=== PATIENT | male | born 1960 | race Hispanic/Latino ===

== ENCOUNTER 2022-07-30 10:42 | Emergency (ER) | payer MEDICARE ==
[~2022-07-30] VITALS: Ht 170.2 cm; Wt 154.2 kg
[2022-07-30] MEDS ORDERED: HYDROCODONE/APAP 10MG-325MG TAB PO ONE (11:30)
[2022-07-30] MEDS ORDERED: CEFTRIAXONE 1 GM VIAL IV ONE (11:30)
[2022-07-30] MEDS ORDERED: SODIUM CHLORIDE 0.9% 1000ML 1,000 ML IV SCH (11:30)
[2022-07-30 12:14] LABS: BASOPHILS % 0.4 % (0.0-1.0); EOSINOPHILS # (AUTO) 0.1 (0.0-0.4); EOSINOPHILS % 1.1 % (0.0-6.0); HEMATOCRIT 55.3 % (38.2-49.6); HEMOGLOBIN 18.5 g/dL (14.0-18.0); LYMPHOCYTES # (AUTO) 1.8 (1.0-3.2); LYMPHOCYTES % 24.7 % (18.0-39.1); MEAN CORPUSCULAR HEMOGLOBIN 29.4 pg (28-32); MEAN CORPUSCULAR HGB CONC 33.5 g/dL (31-35); MEAN CORPUSCULAR VOLUME 87.9 fL (81-99); MONOCYTES # (AUTO) 0.7 (0.2-0.8); MONOCYTES % 9.8 % (4.4-11.3); NEUTROPHILS # (AUTO) 4.6 (2.1-6.9); NEUTROPHILS % 63.7 % (38.7-80.0); PLATELET COUNT 176 x10e3/uL (140-360); RED BLOOD COUNT 6.29 x10e6/uL (4.3-5.7); RED CELL DISTRIBUTION WIDTH 17.3 % (11.7-14.4)
[2022-07-30] MEDS ORDERED: VANCOMYCIN 300 ML IV ONE (12:30)
[2022-07-30 12:48] LABS: ALBUMIN 3.6 g/dL (3.5-5.0); ALBUMIN/GLOBULIN RATIO 0.9 (0.8-2.0); ANION GAP 14.3 mmol/L (8-16); CALCIUM 9.2 mg/dL (8.4-10.2); CREATININE, SERUM 0.82 mg/dL (0.72-1.25); POTASSIUM 4.3 mmol/L (3.5-5.1)
[2022-07-30] MEDS ORDERED: IOPAMIDOL 370 MG/ML 100 ML INFUS..BTL INJ ONE (13:05)
[2022-07-30] MEDS ORDERED: AMOX TR-K CLV1 EAC2 PO (14:19)
[2022-07-30] MEDS ORDERED: DOXYCYCLINE MO100 M1 PO (14:19)
[2022-07-30] MEDS ORDERED: ACETAMINOPHEN-1 EAC4 PO (14:19)
[2022-07-30 16:42] VITALS: BP 149/79
== END 2022-07-30 16:45 | disposition home or self-care (01) ==
LOC: ER 10:50
DX: L89.159 Pressure ulcer of sacral region, unspecified stage (principal); L03.818 Cellulitis of other sites; E11.65 Type 2 diabetes mellitus with hyperglycemia; E78.5 Hyperlipidemia, unspecified
CPT/HCPCS: 36415; 72193; 80053; 83605; 85025; 86140; 87040; 99284; J0696; J7030; Q9967

== ENCOUNTER 2022-08-24 15:31 | Emergency (ER) | payer MEDICARE ==
[~2022-08-24] VITALS: Ht 170.2 cm; Wt 154.2 kg
[~2022-08-24 15:31] MED LIST: ACETAMINOPHEN-1 EAC4 PO; AMOX TR-K CLV1 EAC2 PO; DOXYCYCLINE MO100 M1 PO
[2022-08-24] MEDS ORDERED: KETOROLAC TROMETHAMINE 60 MG/2 ML VIAL ONE (15:55)
[2022-08-24] MEDS ORDERED: SODIUM CHLORIDE FLUSH 10 ML SYR IV PRN (16:15)
[2022-08-24 16:26] LABS: BASOPHILS % 0.2 % (0.0-1.0); EOSINOPHILS % 0.3 % (0.0-6.0); HEMATOCRIT 49.3 % (38.2-49.6); HEMOGLOBIN 16.4 g/dL (14.0-18.0); LYMPHOCYTES # (AUTO) 1.2 (1.0-3.2); LYMPHOCYTES % 12.3 % (18.0-39.1); MEAN CORPUSCULAR HEMOGLOBIN 29.7 pg (28-32); MEAN CORPUSCULAR HGB CONC 33.3 g/dL (31-35); MEAN CORPUSCULAR VOLUME 89.3 fL (81-99); MONOCYTES # (AUTO) 0.5 (0.2-0.8); MONOCYTES % 5.7 % (4.4-11.3); NEUTROPHILS # (AUTO) 7.7 (2.1-6.9); NEUTROPHILS % 80.8 % (38.7-80.0); PLATELET COUNT 177 x10e3/uL (140-360); RED BLOOD COUNT 5.52 x10e6/uL (4.3-5.7); RED CELL DISTRIBUTION WIDTH 15.1 % (11.7-14.4)
[2022-08-24 16:38] LABS: ALBUMIN/GLOBULIN RATIO 0.6 (0.8-2.0); ANION GAP 13.8 mmol/L (8-16); CALCIUM 9.4 mg/dL (8.4-10.2); CREATININE, SERUM 0.89 mg/dL (0.72-1.25); POTASSIUM 4.8 mmol/L (3.5-5.1)
[2022-08-24] MEDS ORDERED: AZITHROMYCIN250 MG PO (19:48)
[2022-08-25] MEDS ORDERED: IOPAMIDOL 370 MG/ML 100 ML INFUS..BTL INJ ONE (04:05)
== END 2022-08-24 20:23 | disposition home or self-care (01) ==
LOC: ER 15:41
DX: R07.89 Other chest pain (principal); J40 Bronchitis, not specified as acute or chronic; R05.9 Cough, unspecified; E11.65 Type 2 diabetes mellitus with hyperglycemia; E78.5 Hyperlipidemia, unspecified
CPT/HCPCS: 36415; 71046; 71260; 80053; 83880; 84484; 85025; 94760; 99284; J1885; Q9967